=== PATIENT | female | born 1995 | race Caucasian/White ===

== ENCOUNTER 2018-12-14 18:14 | Emergency (ER) | payer OTHER ==
--- NOTE | 2018-12-14 19:35 | EDM.PDOC ---
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 She was stuck with a US probe today on the marie aspect of the left thumb. This was not real deep. Onset: Today, Sudden Duration: Hour(s): Location: Reports: Upper Extremity, Left Associated Symptoms: Reports: No Other Symptoms - Related Data Allergies Allergy/AdvReac Type Severity Reaction Status Date / Time Latex, Natural Rubber Allergy Rash Verified 12/14/18 19:12 Home Meds: Home Meds Levonorgestrel-Ethin Estradiol [Kurvelo] 1 each PO DAILY 12/14/18 [History] Past Medical History - Past Health History Medical/Surgical History: Denies Medical/Surgical History - Past Surgical History GI Surgical History: Reports: Hernia Repair/Other Social & Family History - Tobacco Use Smoking Status *Q: Never Smoker - Caffeine Use Caffeine Use: Reports: None - Recreational Drug Use Recreational Drug Use: No ED ROS GENERAL - Review of Systems Review Of Systems: See Below Constitutional: Reports: No Symptoms HEENT: Reports: No Symptoms Respiratory: Reports: No Symptoms Cardiovascular: Reports: No Symptoms Endocrine: Reports: No Symptoms GI/Abdominal: Reports: No Symptoms : Reports: No Symptoms Musculoskeletal: Reports: No Symptoms Skin: Reports: Other (pt had a needle stick at the dental clinic today. ) Neurological: Reports: No Symptoms ED EXAM, GENERAL - Physical Exam Exam: See Below Free Text/Narrative:: pt had a needles stick today from a US pobe. She is here for blood work. Exam Limited By: No Limitations General Appearance: Alert, Anxious Extremities: Other (pt has a small punture wound on the marie aspect of the left thumb,) Course - Vital Signs Last Recorded V/S: Last Vital Signs Temp 35.9 C 12/14/18 19:22 Pulse 80 12/14/18 19:22 Resp 12 12/14/18 19:22 BP 127/90 12/14/18 19:22 Pulse Ox 96 12/14/18 19:22 - Re-Assessments/Exams Free Text/Narrative Re-Assessment/Exam: 12/14/18 19:37 labs were drawn per the needle stick protocol. Departure - Departure Time of Disposition: 19:35 Disposition: Home, Self-Care 01 Condition: Fair Clinical Impression: Needle stick injury - Discharge Information Referrals: PCP,None [Primary Care Provider] - Forms: ED Department Discharge Care Plan Goals: will notify of the lab work that was drawn.
== END 2018-12-14 19:45 | disposition home or self-care (01) ==
LOC: JP.ED 18:14
DX: S61.032A Puncture wound without foreign body of left thumb without damage to nail, initial encounter (principal); Z91.040 Latex allergy status; Z79.899 Other long term (current) drug therapy; W27.3XXA Contact with needle (sewing), initial encounter
CPT/HCPCS: 99282

== ENCOUNTER 2020-05-22 07:51 | Day surgery (SDC) | payer BC ==
[2020-05-22] MEDS ORDERED: Scopolamine 1.5 MG Transdermal Patch TOP SCH (08:15)
[2020-05-22] MEDS ORDERED: Dexamethasone 4 MG/ML SDV ONE (08:21)
[2020-05-22] MEDS ORDERED: Glycopyrrolate 0.2 MG/ML 5 ML MDV ONE (08:21)
[2020-05-22] MEDS ORDERED: Propofol 200 MG/20 ML SDV ONE (08:21)
[2020-05-22] MEDS ORDERED: Rocuronium 50 MG/5 ML Vial ONE (08:21)
[2020-05-22] MEDS ORDERED: Ondansetron 4 MG/2 ML SDV ONE (08:21)
[2020-05-22] MEDS ORDERED: Neostigmine Methylsulfate 1 MG/ML 5 ML Syringe ONE (08:21)
[2020-05-22] MEDS ORDERED: fentaNYL 250 MCG/5 ML SDV ONE (08:21)
[2020-05-22] MEDS ORDERED: Dextrose 5%-Lactated Ringers 1,000 ML IV SCH (08:30)
[2020-05-22] MEDS ORDERED: Lidocaine 1% 2 ML ONE (08:46)
[2020-05-22] MEDS ORDERED: Dexamethasone 4 MG/ML SDV IVPUSH ONE (09:15)
[2020-05-22] MEDS ORDERED: Oxymetazoline 0.05% Nasal Spray 30 ML Bottle ONE (09:33)
[2020-05-22] MEDS ORDERED: fentaNYL 100 MCG/2 ML SDV ONE (09:36)
[2020-05-22] MEDS ORDERED: Ketorolac 30 MG/ML SDV IVPUSH ONE (10:56)
[2020-05-22] MEDS ORDERED: Acetaminophen/HYDROcodone 108-2.5 MG/5 ML Soln 15 ML UD Cup PO ONE (11:00)
[2020-05-22] MEDS ORDERED: Ketorolac 10 MG Tab PO ONE (11:00)
--- NOTE | 2020-05-23 09:28 | OR ---
DATE OF PROCEDURE: 05/22/2020 SURGEON: Donavan Cordon MD PREOPERATIVE DIAGNOSIS: Chronic cryptic tonsillitis . POSTOPERATIVE DIAGNOSIS: Chronic cryptic tonsillitis . PROCEDURE PERFORMED: Tonsillectomy and adenoidectomy over 12 years of age. ANESTHESIA: General. ESTIMATED BLOOD LOSS: Minimal. DESCRIPTION OF TECHNIQUE: After satisfactory endotracheal anesthesia, a Gagandeep-Jorge mouth gag placed, soft palate retracted. There was about 20% of the adenoid tissue left and I elected to proceed with the adenoidectomy. This was removed and the adenoid bed bleeding controlled with suction coagulation. The enlarged and obstructive posterior extension of inferior turbinates bilaterally also reduced with suction cauterization with minimal bleeding. The deeply seated tonsils with some crypts were removed using the PEAK plasma cutter tonsillectomy technique. The patient had a generous plica triangularis that was removed as well. Minimal bleeding occurred. The patient was released from mouth gag to check for occult bleeders several times before. The patient was suctioned free of saliva and extubated and transferred to recovery room in stable condition. Discharge medication consists of Toradol for pain and also hydrocodone in the form of Hycet for pain. Donavan Cordon MD /[id number]
== END 2020-05-22 13:00 | disposition home or self-care (01) ==
LOC: JP.SDS 07:51
PROVIDERS: ATTEND Otolaryngology
DX: J35.01 Chronic tonsillitis (principal); J03.80 Acute tonsillitis due to other specified organisms; B96.89 Other specified bacterial agents as the cause of diseases classified elsewhere; E66.9 Obesity, unspecified; Z68.35 Body mass index [BMI] 35.0-35.9, adult
CPT/HCPCS: 36415; 42821; 80053; 84703; 85027; 88304; A9270; J1100; J1885; J2405; J2704; J2710; J3010; J3490; J7121

== ENCOUNTER 2020-05-24 07:59 | Emergency (ER) | payer BC ==
--- NOTE | 2020-05-24 08:34 | EDM.PDOC ---
ED HPI GENERAL MEDICAL PROBLEM - General Chief Complaint: ENT Problem Stated Complaint: BLEEDING POST TONSILLECTOMY Time Seen by Provider: 05/24/20 08:26 Source of Information: Reports: Patient, Family, RN Notes Reviewed History Limitations: Reports: No Limitations - History of Present Illness INITIAL COMMENTS - FREE TEXT/NARRATIVE: 24-year-old female presents emergency department day complaint of needing tonsils, she is postop day 3 she admits she had some mucus last night had cleared her throat and then this morning she had some bleeding called outpatient surgery recommended report to the emergency department for evaluation, bleeding as stopped by the time she arrives emergency department. she is not feeling lightheaded. - Related Data Allergies Allergy/AdvReac Type Severity Reaction Status Date / Time Latex, Natural Rubber Allergy Rash Verified 05/24/20 08:13 Home Meds: Home Meds Levonorgestrel/Ethin.estradiol [Kurvelo] 1 each PO DAILY 12/14/18 [History] Omeprazole 10 mg PO DAILY 05/22/20 [History] Venlafaxine HCl [Venlafaxine HCl ER] 37.5 mg PO BEDTIME 05/22/20 [History] Hydrocodone/Acetaminophen [Hydrocodone-Acetamin 10-325/15] 5 ml PO Q4HR PRN 05/24/20 [History] Ketorolac [Toradol] 10 mg PO Q4HR PRN 05/24/20 [History] Past Medical History Gastrointestinal History: Reports: GERD Psychiatric History: Reports: Anxiety Endocrine/Metabolic History: Reports: Obesity/BMI 30+ Hematologic History: Reports: None Immunologic History: Reports: None Oncologic (Cancer) History: Reports: None Dermatologic History: Reports: Eczema - Infectious Disease History Infectious Disease History: Reports: None - Past Surgical History HEENT Surgical History: Reports: None Cardiovascular Surgical History: Reports: None Respiratory Surgical History: Reports: None GI Surgical History: Reports: Hernia Repair/Other Female Surgical History: Reports: None Endocrine Surgical History: Reports: None Neurological Surgical History: Reports: None Musculoskeletal Surgical History: Reports: None Oncologic Surgical History: Reports: None Dermatological Surgical History: Reports: None Social & Family History - Family History HEENT: Reports: None Cardiac: Reports: Heart Failure, NM Respiratory: Reports: COPD GI: Reports: GERD : Reports: None Musculoskeletal: Reports: Arthritis Neurological: Reports: None Psychiatric: Reports: None Endocrine/Metabolic: Reports: Diabetes, type II, Hypothyroidism Hematologic: Reports: Other (See Below) Other Hematologic Family History: blood clots Dermatologic: Reports: Eczema Oncologic: Reports: Breast - Tobacco Use Tobacco Use Status *Q: Never Tobacco User - Caffeine Use Caffeine Use: Reports: None - Recreational Drug Use Recreational Drug Use: No ED ROS ENT - Review of Systems Review Of Systems: See Below Constitutional: Reports: No Symptoms HEENT: Reports: Other (Postoperative of bleeding tonsillectomy) Respiratory: Reports: No Symptoms Cardiovascular: Reports: No Symptoms ED EXAM, ENT - Physical Exam Exam: See Below Text/Narrative:: Mouth mucosa is moist there is postsurgical changes posterior pharynx the left side still has a [place] on it however the right side appears fresh the Esher is removed I do not appreciate any active bleeding in the posterior pharynx at this time, tongue is midline uvula is midline dentition intact airways open patent and clear Exam Limited By: No Limitations General Appearance: Alert, WD/WN, No Apparent Distress Respiratory/Chest: No Respiratory Distress Course - Vital Signs Last Recorded V/S: Last Vital Signs Temp 97.5 F 05/24/20 08:06 Pulse 60 05/24/20 08:06 Resp 16 05/24/20 08:06 BP 121/84 05/24/20 08:06 Pulse Ox 96 05/24/20 08:06 Departure - Departure Time of Disposition: 08:33 Disposition: Home, Self-Care 01 Condition: Fair Clinical Impression: Postoperative bleeding from incision - Discharge Information Referrals: Doris Flynn PA [Primary Care Provider] - Additional Instructions: Continue with your symptomatic care and postoperative care described by surgery, keep your follow-up appointment with your general surgeon Sepsis Event Note (ED) - Evaluation Sepsis Screening Result: No Definite Risk - Focused Exam Vital Signs: Vital Signs Temp Pulse Resp BP Pulse Ox 05/24/20 08:06 97.5 F 60 16 121/84 96 - Assessment/Plan Plan: Assessment Acuity = acute Site and laterality = postoperative bleeding postop day 3 tonsillectomy Etiology = normal course Manifestations = none Location of injury = Home Lab values = none Plan Continue with symptomatic care and postoperative care described by surgery keep your follow-up appointment with your surgeon This note was dictated using [employer] Buru voice recognition software please call with any questions on syntax or grammar.
== END 2020-05-24 08:53 | disposition home or self-care (01) ==
LOC: JP.ED 07:59
DX: J95.830 Postprocedural hemorrhage of a respiratory system organ or structure following a respiratory system procedure (principal); K21.9 Gastro-esophageal reflux disease without esophagitis; E66.9 Obesity, unspecified; Z68.39 Body mass index [BMI] 39.0-39.9, adult; Z91.040 Latex allergy status; Z79.899 Other long term (current) drug therapy
CPT/HCPCS: 99282; 99283

== ENCOUNTER 2022-04-06 09:50 | Day surgery (SDC) | payer BC ==
[~2022-04-06 09:50] MED LIST: Bupivacaine 0.5% 30 ML SDV ONE
[2022-04-06] MEDS ORDERED: ceFAZolin 2 GM in Sodium Chloride 0.9% 50 ML IV ONE (10:30)
[2022-04-06] MEDS ORDERED: ceFAZolin 2 GM in Sodium Chloride 0.9% 100 ML IV ONE (10:30)
[2022-04-06] MEDS ORDERED: Nozin Nasal Sanitizer NASBOTH ONE (10:30)
[2022-04-06] MEDS ORDERED: fentaNYL 250 MCG/5 ML SDV ONE (10:45)
[2022-04-06] MEDS ORDERED: Propofol 200 MG/20 ML SDV ONE ×2 (10:46→15:48)
[2022-04-06] MEDS ORDERED: Dexamethasone 4 MG/ML SDV ONE (10:46)
[2022-04-06] MEDS ORDERED: Ondansetron 4 MG/2 ML SDV ONE (10:46)
[2022-04-06 10:49] LABS: ESTIMATED GFR 124 mL/min (>60)
[2022-04-06] MEDS: Lactated Ringers 1,000 ML IV SCH ×3 (11:15→17:24)
[2022-04-06] MEDS ORDERED: Midazolam 1 MG/ML 2 ML SDV ONE ×2 (13:55→14:32)
[2022-04-06] MEDS ORDERED: Ondansetron 4 MG Tab.DIS PO PRN (16:31)
[2022-04-06] MEDS ORDERED: Magnesium Hydroxide 400 MG/5 ML Susp 30 ML Cup PO PRN (16:31)
[2022-04-06] MEDS ORDERED: Morphine 2 MG/ML SYRINGE IVPUSH PRN (16:31)
[2022-04-06] MEDS ORDERED: Non-Formulary Medication 1 Each (Aluminum Chloride [Drysol] 60 ML Solution) TP PRN (16:38)
[2022-04-06] MEDS ORDERED: Non-Formulary Medication 1 Each (Tizanidine [Zanaflex] 4 MG Tablet) PO PRN (16:38)
[2022-04-06] MEDS ORDERED: Acetaminophen/oxyCODONE 325-5 MG Tab PO PRN (16:39)
[2022-04-06] MEDS ORDERED: ceFAZolin 1 GM in Sodium Chloride 0.9% 50 ML IV SCH (16:45)
[2022-04-06] MEDS ORDERED: tiZANidine 2 MG Tab PO PRN (17:01)
[2022-04-06] MEDS ORDERED: Betamethasone Dipropionate 0.05% Crm 15 GM Tube TOP PRN (17:05)
[2022-04-06] MEDS ORDERED: Clobetasol 0.05% Crm 30 GM Tube TOP PRN (17:06)
[2022-04-06] MEDS: Ketorolac 30 MG/ML SDV IVPUSH SCH (17:21)
[2022-04-06] MEDS: Nozin Nasal Sanitizer NASBOTH SCH (21:45)
[2022-04-06] MEDS: Acetaminophen/HYDROcodone 325-5 MG Tab PO PRN (21:46)
[2022-04-06] MEDS: ceFAZolin 1 GM in Premix Bag 1 BAG IV SCH (21:47)
[2022-04-07] MEDS: Ketorolac 30 MG/ML SDV IVPUSH SCH ×2 (02:57→11:05)
[2022-04-07] MEDS: ceFAZolin 1 GM in Premix Bag 1 BAG IV SCH (05:32)
[2022-04-07] MEDS ORDERED: Pantoprazole 40 MG Tab.CR PO SCH (07:30)
[2022-04-07] MEDS ORDERED: Levothyroxine 25 MCG Tab PO SCH (07:30)
[2022-04-07] MEDS: Lactated Ringers 1,000 ML IV SCH (07:43)
[2022-04-07] MEDS: Acetaminophen/HYDROcodone 325-5 MG Tab PO PRN (07:49)
[2022-04-07] MEDS: Nozin Nasal Sanitizer NASBOTH SCH (08:21)
[2022-04-07] MEDS ORDERED: Non-Formulary Medication 1 Each (Omeprazole [Omeprazole] 20 MG Capsule.Dr) PO SCH (09:00)
[2022-04-07] MEDS ORDERED: Docusate Sodium 100 MG Cap PO SCH (09:00)
[2022-04-07] MEDS ORDERED: Non-Formulary Medication 1 Each (Venlafaxine [Effexor Xr] 150 MG Cap.Er) PO SCH (09:00)
[2022-04-07] MEDS ORDERED: Venlafaxine 75 MG Cap.ER PO SCH ×2 (09:00→21:00)
[2022-04-10] MEDS ORDERED: TIRZEPATIDE 2.5 MG/0.5 ML SQ SCH (09:00)
== END 2022-04-07 14:05 | disposition home or self-care (01) ==
LOC: JP.SDS 09:50 → JP.MS 16:31 → JP.SDS 04-07 14:05
PROVIDERS: ATTEND Specialist
DX: M22.42 Chondromalacia patellae, left knee (principal); M22.2X2 Patellofemoral disorders, left knee; Z79.899 Other long term (current) drug therapy; Z91.040 Latex allergy status
CPT/HCPCS: 36415; 80053; 81025; 85027; 97110-GP; 97116-GP; 97161-GP; A9270-GY; C1713; C1769; J0690; J1100; J1885; J2250; J2405; J2704; J3010; J3490; J7120

== ENCOUNTER 2022-04-13 11:12 | Emergency (ER) | payer BC | END 2022-04-13 12:48 | disposition home or self-care (01) | LOC: JP.ED 11:12 | DX: R60.9 Edema, unspecified (principal); M79.662 Pain in left lower leg; E03.9 Hypothyroidism, unspecified; K21.9 Gastro-esophageal reflux disease without esophagitis; E66.9 Obesity, unspecified; Z91.040 Latex allergy status; Z68.39 Body mass index [BMI] 39.0-39.9, adult | CPT/HCPCS: 93971-26-LT; 93971-LT; 99283 ==